=== PATIENT | female | born 1960 | race Caucasian/White ===

== ENCOUNTER 2019-02-26 09:01 | Outpatient (CLI) | payer MEDICARE, SELFPAY ==
[2019-02-26 08:02] VITALS: BP 130/68; PULSE 51; RESP 18; TEMP 36.4; O2SAT 99; BMI 36.0
--- NOTE | 2019-02-26 11:03 | ECG_ITS ---
Measurements Intervals [place] Rate: 52 P: 17 [place]: 159 QRS: 41 QRSD: 81 T: 16 QT: 403 QTc: 377 Interpretive Statements SINUS BRADYCARDIA LOW QRS VOLTAGE IN PRECORDIAL LEADS BASELINE ARTIFACT- I, II, III, AVR, AVL, AVF, V6 BORDERLINE ECG Electronically Signed On 02-26-2019 13:00:16 STORE STOCK ASSOCIATE by Daniel Wolf D.O.
[2019-02-26 11:38] LABS: Basophils Percent Auto 0.4 % (0.2-1.2); Eosinophils Absolute Auto 0.2 K/mm3 (0-0.3); Eosinophils Percent Auto 2.1 % (0-4.4); Hematocrit 39.5 % (37.0-47.0); Hemoglobin 13.1 g/dL (12.0-15.0); Immature Granulocyte Absolute 0.02 K/mm3 (0.00-0.031); Immature Granulocyte Percent A 0.2 % (0-0.5); Lymphocytes Absolute Auto 2.42 K/mm3 (0.9-3.2); Lymphocytes Percent Auto 29.9 % (18.3-44.2); Mean Corpuscular HGB Conc 33.2 g/dl (32-36); Mean Corpuscular Volume 99.5 fl (80-100); Mean Platelet Volume 9.3 fl (7.4-10.4); Monocytes Absolute Auto 0.9 K/mm3 (0.1-0.6); Monocytes Percent Auto 10.9 % (2.6-8.5); Neutrophils Absolute Auto 4.6 K/mm3 (1.3-6.7); Neutrophils Percent Auto 56.5 % (45.5-73.1); Platelet Count Result 225 k/mm3 (150-375); Red Blood Count 3.97 M/mm3 (4.2-5.4); Red Cell Distribution Width 12.2 % (11.5-14.5); White Blood Count 8.1 K/mm3 (4.5-10.0)
[2019-02-26 11:47] LABS: Urine Cotinine NEGATIVE
[2019-02-26 11:48] LABS: Blood Urea Nitrogen 17 mg/dL (7-17); Calcium 9.8 mg/dL (8.4-10.2); Carbon Dioxide 33 mmol/L (22-30); Chloride 98 mmol/L (98-107); Estimated CRCL calculation 68 ml/min; Estimated Glomerular Filt Rate > 60; Glucose 80 mg/dL (65-105); Potassium 3.6 mmol/L (3.4-5.0); Sodium 139 mmol/L (137-145)
[2019-02-26 12:21] LABS: Hemoglobin A1C 5.4 % (<5.7)
== END 2019-02-26 09:02 | disposition home or self-care (01) ==
LOC: ANHSURGERY 09:13
PROVIDERS: Visit Provider Orthopaedic Surgery
DX: Z01.818 Encounter for other preprocedural examination (principal); I10 Essential (primary) hypertension; M17.12 Unilateral primary osteoarthritis, left knee
CPT/HCPCS: 36415; 80048; 80307; 83036; 85025; 87081; 93005

== ENCOUNTER 2020-07-09 14:29 | Outpatient (CLI) | payer OTHER, MEDICARE, SELFPAY | END 2020-07-09 14:30 | disposition home or self-care (01) | LOC: ANHCOVIDVC 14:29 | PROVIDERS: PCP Orthopaedic Surgery | DX: Z23 Encounter for immunization (principal) | CPT/HCPCS: 0001A; 91300 ==

== ENCOUNTER 2020-07-30 14:27 | Outpatient (CLI) | payer MEDICARE, SELFPAY | END 2020-07-30 14:28 | disposition home or self-care (01) | LOC: ANHCOVIDVC 14:27 | PROVIDERS: PCP Orthopaedic Surgery | DX: Z23 Encounter for immunization (principal) | CPT/HCPCS: 0002A; 91300 ==

== ENCOUNTER 2021-01-14 17:57 | Emergency (ER) | payer MEDICARE, SELFPAY ==
[2021-01-14 18:00] VITALS: BP 184/75; PULSE 80; RESP 18; TEMP 36.3; O2SAT 98
--- NOTE | 2021-01-14 18:04 | ED.SKABFB ---
HPI - Skin/Abscess/Foreign Bdy General Chief complaint: Skin/Abscess/Foreign Body Stated complaint: wound on left leg Time Seen by Provider: 01/14/21 18:04 Source: patient and RN notes reviewed History of Present Illness HPI narrative: Patient is a 60-year-old female who presents the urgent care with complaints of redness around a left leg wound. Patient states she has history of cellulitis to the left lower leg and was concerned about infection. Patient states that it started yesterday. Patient has seen the hotel reservationist back in October and it was noted to be a keratosis to the left lower leg. Patient denies of any recent injury to the area. Denies of any drainage from the area. No other acute complaints. No acute distress noted. Patient aware of plan of care. Some parts of this dictation were generated by voice recognition software and may contain typographical and/or grammatical inaccuracies. Related Data Home Medications Medication Instructions Recorded Confirmed Remicade 100 mg IV [id number] 02/26/19 01/14/21 amlodipine 5 mg PO DAILY 02/26/19 01/14/21 bupropion HCl 300 mg PO QAM 02/26/19 01/14/21 calcitriol 0.25 mcg PO DAILY 02/26/19 01/14/21 cholecalciferol (vitamin D3) 50,000 unit PO WEEKLY 02/26/19 01/14/21 clopidogrel 75 mg PO DAILY 02/26/19 01/14/21 cyclobenzaprine 10 mg PO TID 02/26/19 01/14/21 fentanyl 1 patch TRANSDERMAL Q72H 02/26/19 01/14/21 leflunomide 20 mg PO DAILY 02/26/19 01/14/21 levothyroxine 88 mcg PO DAILY 02/26/19 01/14/21 liothyronine 5 mcg PO DAILY 02/26/19 01/14/21 mecobalamin (vitamin B12) 1,000 mcg SUBLINGUAL DAILY 02/26/19 01/14/21 metoprolol succinate 50 mg PO DAILY 02/26/19 01/14/21 oxycodone-acetaminophen 1 tablet PO Q6H PRN 02/26/19 01/14/21 pantoprazole 40 mg PO BID 02/26/19 01/14/21 spironolactone 25 mg PO DAILY 02/26/19 01/14/21 telmisartan 80 mg PO DAILY 02/26/19 01/14/21 timolol maleate [Timoptic] 1 drp OPHTHALMIC (EYE) Q12H 02/26/19 01/14/21 trazodone 150 mg PO HS 02/26/19 01/14/21 cyclobenzaprine 10 mg tablet 10 mg PO TID 03/24/20 01/14/21 gabapentin 300 mg capsule 300 mg PO DAILY 03/24/20 01/14/21 infliximab 100 mg intravenous See Rx Instructions .ROUTE .COMPLEX 03/24/20 11/20/20 solution leflunomide 20 mg tablet 20 mg PO DAILY 03/24/20 01/14/21 zinc 50 mg tablet 50 mg PO DAILY 03/24/20 01/14/21 prednisone 5 mg tablet 5 mg PO DAILY tablet 11/20/20 01/14/21 Allergies Allergy/AdvReac Type Severity Reaction Status Date / Time adhesive tape Allergy Unknown RASH, Verified 01/14/21 18:16 avoids latex due to this allergy clarithromycin Allergy Unknown Nausea Verified 01/14/21 18:16 codeine Allergy Unknown Rash Verified 01/14/21 18:16 duloxetine [From Cymbalta] Allergy Unknown Rash Verified 01/14/21 18:16 erythromycin base Allergy Unknown Nausea Verified 01/14/21 18:16 pregabalin [From Lyrica] Allergy Unknown Rash Verified 01/14/21 18:16 sumatriptan [From Imitrex] Allergy Unknown Hypertensio Verified 01/14/21 18:16 n pineapple Allergy Swelling Verified 01/14/21 18:16 Review of Systems Review of Systems: CONSTITUTIONAL: Denies fever, chills, or sweats. EYES: Denies visual changes, redness, or discharge. ENT: Denies rhinorrhea, congestion, sore throat, or otalgia. CARDIOVASCULAR: Denies chest pain, palpitations, or edema. RESPIRATORY: Denies cough or dyspnea. GASTROINTESTINAL: Denies abdominal pain, nausea, vomiting, or diarrhea. GENITOURINARY: Denies dysuria or hematuria. SKIN: Reports of redness and swelling to the left lower leg surrounding a keratosis MUSCULOSKELETAL: Denies back pain, joint pain, or myalgia. NEUROLOGIC: Denies headache, numbness, or weakness. All other systems reviewed are negative, except as documented in HPI. PMFSH Past Medical History Medical History Aftercare following surgery (03/27/19) Anxiety Depression Fibromyalgia GERD (gastroesophageal reflux disease) Glaucoma HTN (hypertens
== END 2021-01-14 18:30 | disposition home or self-care (01) ==
PROVIDERS: Emergency Provider Nurse Practitioner Family
DX: L57.0 Actinic keratosis (principal); M79.7 Fibromyalgia; K21.9 Gastro-esophageal reflux disease without esophagitis; H40.9 Unspecified glaucoma; I10 Essential (primary) hypertension; E03.9 Hypothyroidism, unspecified; M46.96 Unspecified inflammatory spondylopathy, lumbar region; I34.9 Nonrheumatic mitral valve disorder, unspecified; M17.11 Unilateral primary osteoarthritis, right knee; M05.9 Rheumatoid arthritis with rheumatoid factor, unspecified; G47.30 Sleep apnea, unspecified; F32.9 Major depressive disorder, single episode, unspecified
CPT/HCPCS: 99213; G0463

== ENCOUNTER → 2021-03-24 10:01 | Outpatient (CLI) | payer MEDICARE, SELFPAY ==
--- NOTE | ~2021-03-24 | MR_ITS ---
EXAMINATION: MR knee LT wo con DATE: 03/24/2021 10:53 INDICATION: Unilateral primary osteoarthritis of the left knee. TECHNIQUE: Magnetic resonance imaging (MRI) of the left knee was performed without intravenous contra st. Sequences included coronal PD-weighted FSE, coronal PD-weighted FS FSE, sagittal T2-weighted FSE , sagittal PD-weighted FS FSE and axial PD weighted fat saturated FSE. COMPARISON: Left knee radiographs dated 03/09/2021 FINDINGS: Medial compartment: There is medial extrusion of the medial meniscal body. Complex tear at the meniscal body with both a longitudinal component extending to the inferior articular surface and radial component involving the portion meniscus inferolateral to the longitudinal tear plane which is also a partially subluxed int o the gutter along the medial margin of the medial tibial plateau. Extensive partial thickness cartil age loss with mild chondral surface irregularity which appears to involve greater than 50% the cartil age thickness along the anterior to central weightbearing medial femoral condyle and anterior half of the medial tibial plateau. Mild increased subarticular signal along the posterior weightbearing medi al femoral condyle where there is only mild partial-thickness cartilage loss. Moderate size marginal osteophytes are present. Lateral compartment: Lateral meniscus is normal. Mild chondral surface regularity along the posterior medial quadrant of t he lateral tibial plateau. Additional partial thickness cartilage loss with smooth chondral surface a long the lateral margin of the weightbearing lateral femoral condyle. Small marginal osteophytes are present. Patellofemoral compartment: Partial-thickness chondral ulceration with chondral surface regularity which involves greater than 50 % the cartilage thickness along portions of the patellar apical ridge and medial facet and to lesser degree along the medial side of the lateral facet. Similar partial-thickness chondral ulceration with chondral surface regularity signal involving greater than 50% the cartilage thickness along the infe rior half of the trochlea both medially, laterally and at the trochlear groove. Mild cortical irregul arity at the trochlear groove and medial side of the lateral trochlea. Small to moderate size margina l osteophytes are present. Ligaments and tendons: Anterior and posterior cruciate ligaments are normal. The medial collateral ligament and fibular lonnie ateral ligament complex are normal. The extensor mechanism is normal. The visualized medial and later al hamstring tendons as well as the iliotibial band are normal. Fluid: Moderate-sized left knee joint effusion with mild synovitis at the suprapatellar pouch. No loose oste ochondral bodies identified. Osseous/other: Bone alignment is normal. No fracture or pathologic marrow replacing process. IMPRESSION: 1. Complex tear at the body of the medial meniscus. 2. Tricompartmental osteoarthritis, moderate severity in the medial compartment, mild to moderate in the patellofemoral compartment and mild in the lateral compartment. 3. Moderate-sized right knee joint effusion with mild synovitis at the suprapatellar pouch. Reviewed, dictated and finalized at location A. OR SOFTWARE QA ENGINEER IMPRESSION: 1. Complex tear at the body of the medial meniscus. 2. Tricompartmental osteoarthritis, moderate severity in the medial compartment , mild to moderate in the patellofemoral compartment and mild in the lateral co mpartment. 3. Moderate-sized right knee joint effusion with mild synovitis at the suprapat ellar pouch.
== END ==
PROVIDERS: Visit Provider Orthopaedic Surgery
DX: M17.12 Unilateral primary osteoarthritis, left knee (principal); S83.232A Complex tear of medial meniscus, current injury, left knee, initial encounter; X58.XXXA Exposure to other specified factors, initial encounter; M25.462 Effusion, left knee
CPT/HCPCS: 73721

== ENCOUNTER 2021-05-12 00:31 | Day surgery (SDC) | payer MEDICARE, SELFPAY ==
[2021-05-06 17:48] VITALS: BMI 37.3
--- NOTE | 2021-05-06 17:52 | SUR.PREOP ---
Report to the Outpatient Waiting Room, entrance under the green pavilion located off [facility], at time __1100 on date _05/12/21 . OR Time: _1300 - A mask is required within the hospita Preoperative COVID Testing Requirements: No COVID Test needed if: (proof is required; if not received patient will have Rapid Test prior to entry) - Patient has received COVID Vaccine at least 14 days prior to procedure date or - Patient has positive COVID test result within last 90 days of surgery date. COVID Test needed if above criteria is not met If not COVID vaccinated a COVID test must be conducted within 72 hours of surgery and patient is asked to isolate self from time of testing until procedure. You will go to the [facility] for your COVID testing. The [facility] site is located at the corner of [address] [facility]. You will only be called if COVID results are positive and your surgeon may reschedule your elective surgery date. Patients may have clear liquids (water, carbonated beverages, clear teas, apple juice) until 3 hours prior to surgery with a maximum of 20 ounces. - No food from midnight until time of surgery - Infants may have breast milk until 4 hours before surgery, infant formula 6 hours prior to surgery. - Children will be allowed to drink immediately following surgery. If applicable, please bring a bottle or sippy cup to assist with drinking. Juice, water, soda, and popsicles are readily available. For infants on formula, please bring formula the day of surgery. Pacifiers are allowed. Take the following medications with a SIP of water the morning of surgery: _amlodipine,bupropion,levothyroxine,metoprolol Medications to discontinue per physician _vitamin supplements 05/09/21 plavix,leflunomide Date to take last dose___05/05/21 Please no make-up, nail slovenian, hairspray, perfume, deodorant, or body powder the day of surgery. No jewelry (including any body piercings) or valuables the day of surgery, leave them at home. Please take a shower or bath the night before, or the morning of, surgery with an antibacterial soap. Wear comfortable, loose fitting clothing. Children are encouraged to wear pajamas. - Jewelry must be removed prior to entering the operating room. Rings and piercings that are not removed may be cut off. - The hospital will not accept responsibility for valuables. - Please leave all valuables, including medications, at home the day of surgery. If you are going home after surgery, a licensed route delivery service driver must drive you home. - NO public transportation without another adult. - We recommend that an adult stay with you for 24 hours following discharge. - We also recommend that you do not drive, make important decision, drink alcoholic beverages, or take any drugs that were not prescribed by your health care provider for at least 24 hours after your discharge time. For Pediatric surgeries, we recommend two adults accompany the child home (only one inside the building at this time). Follow any additional instructions given to you from your surgeon. Telephone instructions given to _adali savage and asked if any additional questions and then verbalized understanding. Patient advised to call surgeon office or pre surgery nurse liaison [phone] if any additional questions.
--- NOTE | 2021-05-11 15:10 | WPDANESEPPF ---
Anes - Initial Pre Proc Eval Procedure: Operation Date: 05/12/21 13:30 Proposed Procedures p Left Knee Arthroscopy, Partial Medial Meniscectomy - Shawn Landry MD Date/Time: 05/11/21 15:10 Surgeon: Shawn Landry MD Pre Op Diagnosis: Left Medial Meniscus tear Patient Data Age: 61 Gender: F Height: 1.6 m Weight: 95.45 kg Allergies Allergy/AdvReac Type Severity Reaction Status Date / Time pregabalin [From Lyrica] Allergy Severe Swelling Verified 05/06/21 17:16 codeine Allergy Intermediate Rash Verified 05/06/21 17:16 duloxetine [From Cymbalta] Allergy Intermediate Rash Verified 05/06/21 17:16 pineapple Allergy Intermediate Vomiting Verified 05/06/21 17:16 sumatriptan [From Imitrex] Allergy Intermediate Hypertensio Verified 05/06/21 17:16 n adhesive tape Allergy Mild RASH, Verified 05/06/21 17:16 avoids latex due to this allergy clarithromycin Allergy Mild Nausea Verified 05/06/21 17:16 erythromycin base Allergy Mild Nausea Verified 05/06/21 17:16 Home Medications Medication Instructions Recorded Confirmed Type amlodipine 5 mg PO DAILY 02/26/19 05/06/21 History bupropion HCl 300 mg PO QAM 02/26/19 05/06/21 History cholecalciferol (vitamin D3) 50,000 unit PO MONTHLY 02/26/19 05/06/21 History clopidogrel 75 mg PO DAILY 02/26/19 05/06/21 History cyclobenzaprine 10 mg PO TID 02/26/19 05/06/21 History fentanyl 1 patch TRANSDERMAL Q72H 02/26/19 05/06/21 History leflunomide 20 mg PO DAILY 02/26/19 05/06/21 History levothyroxine 88 mcg PO DAILY 02/26/19 05/06/21 History liothyronine 5 mcg PO DAILY 02/26/19 05/06/21 History mecobalamin (vitamin B12) 1,000 mcg SUBLINGUAL DAILY 02/26/19 05/06/21 History metoprolol succinate 50 mg PO DAILY 02/26/19 05/06/21 History oxycodone-acetaminophen 1 tablet PO Q6H PRN 02/26/19 05/06/21 History pantoprazole 40 mg PO BID 02/26/19 05/06/21 History spironolactone 25 mg PO DAILY 02/26/19 05/06/21 History telmisartan 80 mg PO DAILY 02/26/19 05/06/21 History trazodone 150 mg PO HS 02/26/19 05/06/21 History zinc 50 mg tablet 50 mg PO DAILY 03/24/20 05/06/21 History Results Review: All pre-operative results and documents have been reviewed as part of the pre-operative evaluation. [facility] Past Medical History Medical History Aftercare following surgery (03/27/19) Anxiety Depression Fibromyalgia GERD (gastroesophageal reflux disease) Glaucoma HTN (hypertension) Hypothyroid Lumbar spondylitis Lupus Mitral valve prolapse Osteoarthritis Primary osteoarthritis of right knee Protrusion of cervical intervertebral disc Rheumatoid arthritis Seropositive erosive rheumatoid arthritis Sleep apnea Sleep apnea with use of continuous positive airway pressure (CPAP) Stroke It sounds as though the stroke was due to decreased flow in a vertebral artery. Stroke was 04/2010. Vaginal atrophy Vertigo as late effect of stroke Surgical History Surgical History History of appendectomy History of fusion of cervical spine C6-C7. History of hysterectomy History of weight loss surgery Gastric sleeve in February 2018. Presence of right artificial knee joint (03/27/19) Family History Family History Mother Family history of lung cancer Other Diabetes mellitus Family history of arthritis Family history of cardiovascular disease Hypertension Social History Social History Social History: The patient is and lives with her and 2 yorkies in [place], [place]. She is currently on disability, but worked for doctors for many years. She smoked about half pack of cigarettes per day and quit in 2009. No alcohol or drug abuse. She designates her , Kiran, as her surrogate decision maker and she wishes to be a full code. Smoking pa
[2021-05-12] VITALS (9 sets, daily range): BP systolic 124–162; BP diastolic 65–96; PULSE 56–79; RESP 10–16; TEMP 36.2; O2SAT 94–100
--- NOTE | 2021-05-12 07:26 | WPDHPUPDATE1 ---
History and Physical Update Update Date/Time: 05/12/21 07:26 History and Physical has been reviewed, including an updated exam of the patient. There are NO changes in the patient's condition. Risks, benefits, and alternatives have been discussed and questions answered. Patient agrees to proceed with procedure.
--- NOTE | 2021-05-12 11:53 | ECG_ITS ---
Measurements Intervals [place] Rate: 71 P: 59 [place]: 152 QRS: 7 QRSD: 90 T: 54 QT: 390 QTc: 424 Interpretive Statements SINUS RHYTHM LEFT VENTRICULAR HYPERTROPHY BASELINE WANDER- I, AVR, AVL, AVF BORDERLINE ECG Electronically Signed On 05-12-2021 12:49:30 PERSONNEL RECRUITER by Daniel Wolf D.O.
[2021-05-12] MEDS: ACETAMINOPHEN 500 MG TABLET 1000 MG PO (12:26)
[2021-05-12] MEDS: LACTATED RINGERS 1,000 ML 30 ML IV CONT ×2 (12:33→15:08)
--- NOTE | 2021-05-12 13:33 | PM.HPGS ---
History of Present Illness History of Present Illness Consent: Risks, benefits, and alternatives have been discussed and questions answered. Patient agrees to proceed with procedure. Chief complaint: Left Medial Meniscus tear Narrative: Lisset Tyler is a 61 year old female complains of persistent severe left knee pain. Give-way symptoms with several falls. She feels the knee buckle on her and lock. PMH: She has a history of Rheumatoid arthritis and medication induced lupus. She takes chronic pain medications and is on oral steroids. Previous Treatments Medications: Tylenol, Oral Prednisone, Uses a fentanyl patch and Oxycodone. Helps some. Injection given 11/20/20 without good benefit. Physical therapy with Some improvement. Review of Systems Review of Systems: All systems reviewed & are unremarkable except as noted in HPI and below PMFSH Past Medical History Medical History Aftercare following surgery (03/27/19) Anxiety Depression Fibromyalgia GERD (gastroesophageal reflux disease) Glaucoma HTN (hypertension) Hypothyroid Lumbar spondylitis Lupus Mitral valve prolapse Osteoarthritis Primary osteoarthritis of right knee Protrusion of cervical intervertebral disc Rheumatoid arthritis Seropositive erosive rheumatoid arthritis Sleep apnea Sleep apnea with use of continuous positive airway pressure (CPAP) Stroke It sounds as though the stroke was due to decreased flow in a vertebral artery. Stroke was 04/2010. Vaginal atrophy Vertigo as late effect of stroke Surgical History Surgical History History of appendectomy History of fusion of cervical spine C6-C7. History of hysterectomy History of weight loss surgery Gastric sleeve in February 2018. Presence of right artificial knee joint (03/27/19) Family History Family History Mother Family history of lung cancer Other Diabetes mellitus Family history of arthritis Family history of cardiovascular disease Hypertension Social History Social History Social History: The patient is and lives with her and 2 yorkies in [place], [place]. She is currently on disability, but worked for doctors for many years. She smoked about half pack of cigarettes per day and quit in 2009. No alcohol or drug abuse. She designates her , Kiran, as her surrogate decision maker and she wishes to be a full code. Smoking packs per day: 0.5 Smoking cigarettes per day: 10.0 Years smoked: 30 Smoking pack-years: 15.00 Smoking status: Former smoker Tobacco type: cigarettes Smoking end date: 04/25/09 Alcohol intake: never Substance use: never Living arrangements: with family Gender identity (if verbalized by the patient): Female Spiritual care concerns: No Agree to blood products: Yes Meds Home Medications and Allergies Home Medications Medication Instructions Recorded Confirmed Type amlodipine 5 mg PO DAILY 02/26/19 05/06/21 History bupropion HCl 300 mg PO QAM 02/26/19 05/06/21 History cholecalciferol (vitamin D3) 50,000 unit PO MONTHLY 02/26/19 05/06/21 History clopidogrel 75 mg PO DAILY 02/26/19 05/06/21 History cyclobenzaprine 10 mg PO TID 02/26/19 05/06/21 History fentanyl 1 patch TRANSDERMAL Q72H 02/26/19 05/06/21 History leflunomide 20 mg PO DAILY 02/26/19 05/06/21 History levothyroxine 88 mcg PO DAILY 02/26/19 05/06/21 History liothyronine 5 mcg PO DAILY 02/26/19 05/06/21 History mecobalamin (vitamin B12) 1,000 mcg SUBLINGUAL DAILY 02/26/19 05/06/21 History metoprolol succinate 50 mg PO DAILY 02/26/19 05/06/21 History oxycodone-acetaminophen 1 tablet PO Q6H PRN 02/26/19 05/06/21 History pantoprazole 40 mg PO BID 02/26/19 05/06/21 History spironolactone 25 mg PO DAILY 02/26/19 05/06/21 History t
--- NOTE | 2021-05-12 13:47 | WPDANESEPPF ---
Anes - Initial Pre Proc Eval Procedure: Operation Date: 05/12/21 13:30 Proposed Procedures p Left Knee Arthroscopy, Partial Medial Meniscectomy - Shawn Landry MD Date/Time: 05/12/21 13:47 Surgeon: Shawn Landry MD Pre Op Diagnosis: Left Medial Meniscus tear Patient Data Age: 61 Gender: F Height: 1.6 m Weight: 101.5 kg Last Vital Signs Temp 36.2 C L 05/12/21 11:53 Pulse 77 05/12/21 11:53 Resp 16 05/12/21 11:53 BP 152/76 H 05/12/21 11:53 Pulse Ox 100 05/12/21 11:53 Allergies Allergy/AdvReac Type Severity Reaction Status Date / Time pregabalin [From Lyrica] Allergy Severe Swelling Verified 05/06/21 17:16 codeine Allergy Intermediate Rash Verified 05/06/21 17:16 duloxetine [From Cymbalta] Allergy Intermediate Rash Verified 05/06/21 17:16 latex Allergy Intermediate Blister Verified 05/12/21 12:12 pineapple Allergy Intermediate Vomiting Verified 05/06/21 17:16 sumatriptan [From Imitrex] Allergy Intermediate Hypertensio Verified 05/06/21 17:16 n adhesive tape Allergy Mild RASH, Verified 05/06/21 17:16 avoids latex due to this allergy clarithromycin Allergy Mild Nausea Verified 05/06/21 17:16 erythromycin base Allergy Mild Nausea Verified 05/06/21 17:16 Home Medications Medication Instructions Recorded Confirmed Type amlodipine 5 mg PO DAILY 02/26/19 05/06/21 History bupropion HCl 300 mg PO QAM 02/26/19 05/06/21 History cholecalciferol (vitamin D3) 50,000 unit PO MONTHLY 02/26/19 05/06/21 History clopidogrel 75 mg PO DAILY 02/26/19 05/06/21 History cyclobenzaprine 10 mg PO TID 02/26/19 05/06/21 History fentanyl 1 patch TRANSDERMAL Q72H 02/26/19 05/06/21 History leflunomide 20 mg PO DAILY 02/26/19 05/06/21 History levothyroxine 88 mcg PO DAILY 02/26/19 05/06/21 History liothyronine 5 mcg PO DAILY 02/26/19 05/06/21 History mecobalamin (vitamin B12) 1,000 mcg SUBLINGUAL DAILY 02/26/19 05/06/21 History metoprolol succinate 50 mg PO DAILY 02/26/19 05/06/21 History oxycodone-acetaminophen 1 tablet PO Q6H PRN 02/26/19 05/06/21 History pantoprazole 40 mg PO BID 02/26/19 05/06/21 History spironolactone 25 mg PO DAILY 02/26/19 05/06/21 History telmisartan 80 mg PO DAILY 02/26/19 05/06/21 History trazodone 150 mg PO HS 02/26/19 05/06/21 History zinc 50 mg tablet 50 mg PO DAILY 03/24/20 05/06/21 History Patient hx anesthesia problems: none Family hx anesthesia problems: none Results Review: All pre-operative results and documents have been reviewed as part of the pre-operative evaluation. [facility] Past Medical History Medical History Aftercare following surgery (03/27/19) Anxiety Depression Fibromyalgia GERD (gastroesophageal reflux disease) Glaucoma HTN (hypertension) Hypothyroid Lumbar spondylitis Lupus Mitral valve prolapse Osteoarthritis Primary osteoarthritis of right knee Protrusion of cervical intervertebral disc Rheumatoid arthritis Seropositive erosive rheumatoid arthritis Sleep apnea Sleep apnea with use of continuous positive airway pressure (CPAP) Stroke It sounds as though the stroke was due to decreased flow in a vertebral artery. Stroke was 04/2010. Vaginal atrophy Vertigo as late effect of stroke Surgical History Surgical History History of appendectomy History of fusion of cervical spine C6-C7. History of hysterectomy History of weight loss surgery Gastric sleeve in February 2018. Presence of right artificial knee joint (03/27/19) Family History Family History Mother Family history of lung cancer Other Diabetes mellitus Family history of arthritis Family history of cardiovascular disease Hypertension Social History Social History Social History: The patient is and lives with her and 2 y
[2021-05-12] MEDS: ceFAZolin 2 GM/D5W 50 ML 2 GM/50 ML BAG IVPB (13:56)
[2021-05-12] MEDS: BUPIVACAINE HCL 0.5% PF 30 ML VIAL INFILTRATE (14:24)
[2021-05-12] MEDS: fentaNYL CITRATE INJ (*CRX) 100 MCG/2 ML VIAL 25 MCG IV PUSH ×2 (15:20→15:38)
--- NOTE | 2021-05-12 16:00 | P.OP_ITS ---
Procedure Note - Detailed Date of Procedure 05/12/21 Pre-op Diagnosis Left Medial Meniscus tear Post-op Diagnosis same Procedure Performed Arthroscopic left knee partial medial meniscectomy Surgeon Shawn Landry MD Branch Service Leader Cathleen Garza PA-C Anesthesia general Findings Extensive complex medial tear. Subtotal meniscectomy performed. Medial femur chondromalacia grade 3, medial tibia grade 3. Lateral femur chondromalacia grade 0, lateral tibia grade 0. Description of Procedure The patient was identified and the surgical site confirmed and signed in the preoperative holding area. Antibiotics were started per protocol. She was brought to the operative room and transferred to the OR table. A general anesthetic was administered. Supine position with the operative lower extremity position in the leg frye after placement of a well padded tourniquet. The leg support was lowered and the contralateral limb was supported with a soft bolster. The knee was prepped and draped in the usual sterile fashion. A time- out was performed. The portal sites were marked and infiltrated with 0.5% Marcaine 20 mL. The limb was exsanguinated and the tourniquet inflated to 300 mL Hg. Standard inferolateral and inferomedial portals were established. Inflow was obtained with the saline pump. The camera was introduced. Diagnostic inspection of the joint was accomplished. The meniscus was debrided with the arthroscopic shaver and punches until stable. The arthroscopic instruments were removed. The tourniquet released and wounds closed with subcutaneous 4-0 Monocryl absorbable suture. Steri strips and a sterile dressing were applied. A light elastic wrap was placed. The patient was extubated and brought to the recovery room in stable condition. Estimated Blood Loss -5.0 Drains No Complications No immediate complications Condition stable Disposition PACU
== END 2021-05-12 17:37 | disposition home or self-care (01) ==
PROVIDERS: PCP Internal Medicine; Visit Provider Orthopaedic Surgery
PROC: (CPT 29870; principal; 2021-05-12 13:30)
DX: S83.232A Complex tear of medial meniscus, current injury, left knee, initial encounter (principal); W19.XXXA Unspecified fall, initial encounter; M94.262 Chondromalacia, left knee; I10 Essential (primary) hypertension; E03.9 Hypothyroidism, unspecified; F41.8 Other specified anxiety disorders; M79.7 Fibromyalgia; I34.1 Nonrheumatic mitral (valve) prolapse; K21.9 Gastro-esophageal reflux disease without esophagitis; M32.9 Systemic lupus erythematosus, unspecified; M06.9 Rheumatoid arthritis, unspecified; G47.33 Obstructive sleep apnea (adult) (pediatric); Z79.02 Long term (current) use of antithrombotics/antiplatelets; Z86.73 Personal history of transient ischemic attack (TIA), and cerebral infarction without residual deficits; Z98.1 Arthrodesis status; Z98.84 Bariatric surgery status; Z87.891 Personal history of nicotine dependence; E66.9 Obesity, unspecified; Z68.39 Body mass index [BMI] 39.0-39.9, adult
CPT/HCPCS: 29881; 93005; A9270; J0690; J1100; J2250; J2405; J2704; J3010; J7120

== ENCOUNTER 2021-11-17 13:17 | Emergency (ER) | payer MEDICARE, SELFPAY ==
--- NOTE | 2021-11-17 13:21 | ED.URI ---
HPI - URI/Sore Throat General Chief Complaint: Upper Respiratory Infection Stated Complaint: Sore Throat Time Seen by Provider: 11/17/21 13:42 Source: patient and RN notes reviewed Mode of arrival: ambulatory Limitations: no limitations History of Present Illness HPI Narrative: 61 year old female with history of rheumatoid arthritis presents with concern for rhinorrhea, scratchy throat, body aches. Reports she took a negative COVID test at home. Reports symptoms started 2 days ago. Reports her primary care doctor would like her to have a PCR COVID test. She denies cough, shortness of breath, fever. MD elicited complaint: cough and rhinorrhea Related Data Home Medications Medication Instructions Recorded Confirmed amlodipine 5 mg tablet 5 mg PO DAILY 02/26/19 08/05/21 bupropion HCl 300 mg 24 hr tablet, 300 mg PO QAM 02/26/19 08/05/21 extended release cholecalciferol (vitamin D3) 1,250 50,000 unit PO MONTHLY 02/26/19 08/05/21 mcg (50,000 unit) capsule clopidogrel 75 mg tablet 75 mg PO DAILY 02/26/19 08/05/21 cyclobenzaprine 10 mg tablet 10 mg PO TID 02/26/19 08/05/21 fentanyl 50 mcg/hr transdermal 1 patch transdermal Q72H 02/26/19 08/05/21 patch leflunomide 20 mg tablet 20 mg PO DAILY RA 02/26/19 08/05/21 levothyroxine 88 mcg tablet 88 mcg PO DAILY 02/26/19 08/05/21 liothyronine 5 mcg tablet 5 mcg PO DAILY 02/26/19 08/05/21 mecobalamin (vitamin B12) 1,000 1,000 mcg sublingual DAILY 02/26/19 08/05/21 mcg disintegrating tablet,sublingual metoprolol succinate 50 mg 50 mg PO DAILY 02/26/19 08/05/21 tablet,extended release 24 hr oxycodone-acetaminophen 10 mg-325 1 tablet PO Q6H PRN Pain 02/26/19 08/05/21 mg tablet pantoprazole 40 mg tablet,delayed 40 mg PO BID 02/26/19 08/05/21 release spironolactone 25 mg tablet 25 mg PO DAILY 02/26/19 08/05/21 telmisartan 80 mg tablet 80 mg PO DAILY 02/26/19 08/05/21 trazodone 150 mg tablet 150 mg PO HS 02/26/19 08/05/21 zinc 50 mg tablet 50 mg PO DAILY 03/24/20 08/05/21 Allergies Allergy/AdvReac Type Severity Reaction Status Date / Time pregabalin [From Lyrica] Allergy Severe Swelling Verified 11/17/21 13:38 codeine Allergy Intermediate Rash Verified 11/17/21 13:38 duloxetine [From Cymbalta] Allergy Intermediate Rash Verified 11/17/21 13:38 latex Allergy Intermediate Blister Verified 11/17/21 13:38 pineapple Allergy Intermediate Vomiting Verified 11/17/21 13:38 sumatriptan [From Imitrex] Allergy Intermediate Hypertensio Verified 11/17/21 13:38 n adhesive tape Allergy Mild RASH, Verified 11/17/21 13:38 avoids latex due to this allergy clarithromycin Allergy Mild Nausea Verified 11/17/21 13:38 erythromycin base Allergy Mild Nausea Verified 11/17/21 13:38 Review of Systems Review of Systems: CONSTITUTIONAL: Denies malaise, chills, sweats, or fever. Reports fatigue EYES: Denies visual changes, redness, or discharge. ENT: Reports rhinorrhea, congestion, sinus pain, otalgia and sore throat. CARDIOVASCULAR: Denies chest pain, palpitations, or edema. RESPIRATORY: Denies cough. Denies dyspnea. GASTROINTESTINAL: Denies abdominal pain, nausea, vomiting, diarrhea SKIN: Denies rash or itching. MUSCULOSKELETAL: Reports myalgia. NEUROLOGIC: Reports headache. All systems reviewed & are unremarkable except as noted in HPI and below PMFSH Past Medical History Medical History (Updated 11/17/21 @ 13:51 by Mira Mcdonough NP) Aftercare following surgery (03/27/19) Anxiety Depression Fibromyalgia GERD (gastroesophageal reflux disease) Glaucoma HTN (hypertension) Hypothyroid Lumbar spondylitis Lupus Mitral valve prolapse Osteoarthritis Primary osteoarthritis of right knee Protrusion of cervical intervertebral disc Rheumatoid arthritis Seropositive erosive rheumatoid arthritis Sleep apnea Sleep apnea with use of continuous positive airway pressure (CPAP) Stroke It sounds as though the stroke was due to decreased flow in a vertebral artery. Stroke was
[2021-11-17 13:25] VITALS: BP 157/70; PULSE 70; RESP 14; TEMP 37; O2SAT 100
[2021-11-17 18:47] LABS: SARS-CoV-2 RNA PCR Negative
== END 2021-11-17 13:53 | disposition home or self-care (01) ==
PROVIDERS: Emergency Provider Nurse Practitioner
DX: J06.9 Acute upper respiratory infection, unspecified (principal); Z20.822 Contact with and (suspected) exposure to COVID-19; Z87.891 Personal history of nicotine dependence; M79.7 Fibromyalgia; K21.9 Gastro-esophageal reflux disease without esophagitis; H40.9 Unspecified glaucoma; I10 Essential (primary) hypertension; E03.9 Hypothyroidism, unspecified; M47.816 Spondylosis without myelopathy or radiculopathy, lumbar region; I34.1 Nonrheumatic mitral (valve) prolapse; M06.9 Rheumatoid arthritis, unspecified; G47.30 Sleep apnea, unspecified; Z86.73 Personal history of transient ischemic attack (TIA), and cerebral infarction without residual deficits; Z96.651 Presence of right artificial knee joint; F32.A Depression, unspecified; F41.9 Anxiety disorder, unspecified; M32.9 Systemic lupus erythematosus, unspecified
CPT/HCPCS: 99213; C9803; G0463; U0003; U0005

== ENCOUNTER 2022-01-03 13:14 | Emergency (ER) | payer MEDICARE, SELFPAY ==
--- NOTE | 2022-01-03 13:19 | ED.URI ---
HPI - URI/Sore Throat General Chief Complaint: Upper Respiratory Infection Stated Complaint: sinus ears and throat Time Seen by Provider: 01/03/22 13:19 Source: patient and RN notes reviewed History of Present Illness HPI Narrative: Patient 61-year-old female who presents the urgent care with complaints of sore throat, ear pain, sinus congestion and body aches. Patient denies any fever, nausea or vomiting. States that she believes it is most related to allergies. Patient has been doing sinus rinses, Coricidin and cough drops. Patient has not taken them at home COVID test. Denies of any ill exposures. Denies any shortness of breath. No other acute complaints. No acute distress noted. Patient aware of the plan of care. Some parts of this dictation were generated by voice recognition software and may contain typographical and/or grammatical inaccuracies. Related Data Home Medications Medication Instructions Recorded Confirmed amlodipine 5 mg tablet 5 mg PO DAILY 02/26/19 01/03/22 bupropion HCl 300 mg 24 hr tablet, 300 mg PO QAM 02/26/19 01/03/22 extended release cholecalciferol (vitamin D3) 1,250 50,000 unit PO MONTHLY 02/26/19 01/03/22 mcg (50,000 unit) capsule clopidogrel 75 mg tablet 75 mg PO DAILY 02/26/19 01/03/22 cyclobenzaprine 10 mg tablet 10 mg PO TID 02/26/19 01/03/22 fentanyl 50 mcg/hr transdermal 1 patch transdermal Q72H 02/26/19 01/03/22 patch leflunomide 20 mg tablet 20 mg PO DAILY RA 02/26/19 01/03/22 levothyroxine 88 mcg tablet 88 mcg PO DAILY 02/26/19 01/03/22 liothyronine 5 mcg tablet 5 mcg PO DAILY 02/26/19 01/03/22 mecobalamin (vitamin B12) 1,000 1,000 mcg sublingual DAILY 02/26/19 01/03/22 mcg disintegrating tablet,sublingual metoprolol succinate 50 mg 50 mg PO DAILY 02/26/19 01/03/22 tablet,extended release 24 hr oxycodone-acetaminophen 10 mg-325 1 tablet PO Q6H PRN Pain 02/26/19 01/03/22 mg tablet pantoprazole 40 mg tablet,delayed 40 mg PO BID 02/26/19 01/03/22 release spironolactone 25 mg tablet 25 mg PO DAILY 02/26/19 01/03/22 telmisartan 80 mg tablet 80 mg PO DAILY 02/26/19 01/03/22 trazodone 150 mg tablet 150 mg PO HS 02/26/19 01/03/22 zinc 50 mg tablet 50 mg PO DAILY 03/24/20 01/03/22 Allergies Allergy/AdvReac Type Severity Reaction Status Date / Time pregabalin [From Lyrica] Allergy Severe Swelling Verified 11/17/21 13:38 codeine Allergy Intermediate Rash Verified 11/17/21 13:38 duloxetine [From Cymbalta] Allergy Intermediate Rash Verified 11/17/21 13:38 latex Allergy Intermediate Blister Verified 11/17/21 13:38 pineapple Allergy Intermediate Vomiting Verified 11/17/21 13:38 sumatriptan [From Imitrex] Allergy Intermediate Hypertensio Verified 11/17/21 13:38 n adhesive tape Allergy Mild RASH, Verified 11/17/21 13:38 avoids latex due to this allergy clarithromycin Allergy Mild Nausea Verified 11/17/21 13:38 erythromycin base Allergy Mild Nausea Verified 11/17/21 13:38 Review of Systems Review of Systems: CONSTITUTIONAL: Denies fever, chills, or sweats. EYES: Denies visual changes, redness, or discharge. ENT: Reports bilateral otalgia, rhinorrhea, nasal congestion, sinus pressure and sore throat CARDIOVASCULAR: Denies chest pain, palpitations, or edema. RESPIRATORY: Denies cough or dyspnea. GASTROINTESTINAL: Denies abdominal pain, nausea, vomiting, or diarrhea. GENITOURINARY: Denies dysuria or hematuria. SKIN: Denies rash or itching. MUSCULOSKELETAL: Denies back pain, joint pain. Reports of body aches NEUROLOGIC: Denies headache, numbness, or weakness. All other systems reviewed are negative, except as documented in HPI. [facility] Past Medical History Medical History (Updated 01/03/22 @ 13:41 by STEVE Webber) Aftercare following surgery (03/27/19) Anxiety Depression Fibromyalgia GERD (gastroesophageal reflux disease) Glaucoma HTN (hypertension) Hypothyroid Lumbar spondylitis Lupus Mitral valve prolapse Osteoarthritis Primary
[2022-01-03 13:20] VITALS: BP 156/76; PULSE 71; RESP 20; TEMP 36.4; O2SAT 100
[2022-01-03 13:26] VITALS: BP 156/76; PULSE 71; RESP 20; TEMP 36.4; O2SAT 100
[2022-01-03 17:52] LABS: SARS-CoV-2 RNA PCR Positive
== END 2022-01-03 13:50 | disposition home or self-care (01) ==
PROVIDERS: Emergency Provider Nurse Practitioner Family
DX: U07.1 COVID-19 (principal); H66.92 Otitis media, unspecified, left ear; Z87.891 Personal history of nicotine dependence; M79.7 Fibromyalgia; K21.9 Gastro-esophageal reflux disease without esophagitis; H40.9 Unspecified glaucoma; I10 Essential (primary) hypertension; E03.9 Hypothyroidism, unspecified; M47.816 Spondylosis without myelopathy or radiculopathy, lumbar region; I34.1 Nonrheumatic mitral (valve) prolapse; M19.90 Unspecified osteoarthritis, unspecified site; M17.11 Unilateral primary osteoarthritis, right knee; M06.9 Rheumatoid arthritis, unspecified; G47.30 Sleep apnea, unspecified; Z86.73 Personal history of transient ischemic attack (TIA), and cerebral infarction without residual deficits; Z98.84 Bariatric surgery status; M32.9 Systemic lupus erythematosus, unspecified
CPT/HCPCS: 99213; C9803; G0463; U0003; U0005

== ENCOUNTER 2022-01-17 15:12 | Emergency (ER) | payer MEDICARE, SELFPAY ==
--- NOTE | ~2022-01-17 | XR_ITS ---
XR hand LT min 3V DATE: 01/17/2022 15:41 INDICATION: Fell on hand. Generalized hand pain TECHNIQUE: 3 views COMPARISON: None FINDINGS: There is polyarticular osteoarthritis involving primarily the interphalangeal joints, with mild involvement of the first carpometacarpal and third metacarpophalangeal joints. No fracture or dislocation, periosteal reaction or bone destruction, erosive change or chondrocalcino sis is noted. IMPRESSION: Polyarticular osteoarthritis No fracture or dislocation is evident Reviewed, dictated and finalized at location A.
[2022-01-17 15:24] VITALS: BP 178/69; PULSE 88; RESP 16; TEMP 36.3; O2SAT 99
[2022-01-17 15:36] VITALS: BP 178/69; PULSE 88; RESP 16; TEMP 36.3; O2SAT 99
--- NOTE | 2022-01-17 16:17 | ED.GENADULT ---
HPI - General Adult General Chief complaint: Extremity Injury, Upper Stated complaint: Fall Injury/Left Hand Source: patient Mode of arrival: ambulatory Limitations: no limitations History of Present Illness HPI narrative: Patient presents for evaluation after experiencing a fall last night. She indicates she was diagnosed with COVID approximately 2 weeks ago. Since that time she has felt foggy . She has also been having headaches. She was given Paxlovid and completed therapy. Last night she was outside walking to her deck when she fell onto the ground. She hit her head but did not have loss of consciousness. She is not on blood thinners. No vomiting since episode. She began yelling and family members were very close by at that time. She states she has had swelling, pain, bruising to the left hand since that time. She also notes bruising to the left upper eyelid. She has been applying ice. She is currently on fentanyl patches and Percocet for chronic pain per pain management. She is scheduled to see her primary care provider 2 days from now. She came in today to get an x-ray of her left hand to make sure that she did not have a fracture. She is right-hand dominant. She denies paresthesias. No loss of range of motion but states the pain is worse with movement. No additional complaints or concerns. Related Data Home Medications Medication Instructions Recorded Confirmed amlodipine 5 mg tablet 5 mg PO DAILY 02/26/19 01/17/22 bupropion HCl 300 mg 24 hr tablet, 300 mg PO QAM 02/26/19 01/17/22 extended release cholecalciferol (vitamin D3) 1,250 50,000 unit PO MONTHLY 02/26/19 01/17/22 mcg (50,000 unit) capsule clopidogrel 75 mg tablet 75 mg PO DAILY 02/26/19 01/17/22 cyclobenzaprine 10 mg tablet 10 mg PO TID 02/26/19 01/17/22 fentanyl 50 mcg/hr transdermal 1 patch transdermal Q72H 02/26/19 01/17/22 patch leflunomide 20 mg tablet 20 mg PO DAILY RA 02/26/19 01/17/22 levothyroxine 88 mcg tablet 88 mcg PO DAILY 02/26/19 01/17/22 liothyronine 5 mcg tablet 5 mcg PO DAILY 02/26/19 01/17/22 mecobalamin (vitamin B12) 1,000 1,000 mcg sublingual DAILY 02/26/19 01/17/22 mcg disintegrating tablet,sublingual metoprolol succinate 50 mg 50 mg PO DAILY 02/26/19 01/17/22 tablet,extended release 24 hr oxycodone-acetaminophen 10 mg-325 1 tablet PO Q6H PRN Pain 02/26/19 01/17/22 mg tablet pantoprazole 40 mg tablet,delayed 40 mg PO BID 02/26/19 01/17/22 release spironolactone 25 mg tablet 25 mg PO DAILY 02/26/19 01/17/22 telmisartan 80 mg tablet 80 mg PO DAILY 02/26/19 01/17/22 trazodone 150 mg tablet 150 mg PO HS 02/26/19 01/17/22 zinc 50 mg tablet 50 mg PO DAILY 03/24/20 01/17/22 Allergies Allergy/AdvReac Type Severity Reaction Status Date / Time pregabalin [From Lyrica] Allergy Severe Swelling Verified 01/17/22 15:34 codeine Allergy Intermediate Rash Verified 01/17/22 15:34 duloxetine [From Cymbalta] Allergy Intermediate Rash Verified 01/17/22 15:34 latex Allergy Intermediate Blister Verified 01/17/22 15:34 pineapple Allergy Intermediate Vomiting Verified 01/17/22 15:34 sumatriptan [From Imitrex] Allergy Intermediate Hypertensio Verified 01/17/22 15:34 n adhesive tape Allergy Mild RASH, Verified 01/17/22 15:34 avoids latex due to this allergy clarithromycin Allergy Mild Nausea Verified 01/17/22 15:34 erythromycin base Allergy Mild Nausea Verified 01/17/22 15:34 Review of Systems Review of Systems: CONSTITUTIONAL: Denies fever, chills, or sweats. EYES: Denies visual changes, redness, or discharge. ENT: Denies rhinorrhea, congestion, sore throat, or otalgia. CARDIOVASCULAR: Denies chest pain, palpitations, or edema. RESPIRATORY: Denies cough or dyspnea. GASTROINTESTINAL: Denies abdominal pain, nausea, vomiting, or diarrhea. GENITOURINARY: Denies dysuria or hematuria. SKIN: Reports bruising to the face and the left hand. MUSCULOSKELETAL: Reports acute left hand pain. Reports chronic back and nec
== END 2022-01-17 16:18 | disposition home or self-care (01) ==
PROVIDERS: Emergency Provider Nurse Practitioner
DX: S00.12XA Contusion of left eyelid and periocular area, initial encounter (principal); S60.222A Contusion of left hand, initial encounter; W19.XXXA Unspecified fall, initial encounter; F41.9 Anxiety disorder, unspecified; F32.A Depression, unspecified; M79.7 Fibromyalgia; K21.9 Gastro-esophageal reflux disease without esophagitis; H40.9 Unspecified glaucoma; I10 Essential (primary) hypertension; E03.9 Hypothyroidism, unspecified; I34.1 Nonrheumatic mitral (valve) prolapse; M46.96 Unspecified inflammatory spondylopathy, lumbar region; M17.12 Unilateral primary osteoarthritis, left knee; M05.9 Rheumatoid arthritis with rheumatoid factor, unspecified; G47.30 Sleep apnea, unspecified; I69.398 Other sequelae of cerebral infarction; Z87.891 Personal history of nicotine dependence; Z96.651 Presence of right artificial knee joint; Z98.84 Bariatric surgery status
CPT/HCPCS: 73130; 99213; G0463

== ENCOUNTER 2023-03-29 13:33 | Emergency (ER) | payer MEDICARE, SELFPAY ==
--- NOTE | 2023-03-29 13:47 | ED.URI ---
HPI - URI/Sore Throat General Chief Complaint: Upper Respiratory Infection Stated Complaint: Sore Throat/Ear Pain Source: patient, RN notes reviewed and old records reviewed Mode of arrival: ambulatory Limitations: no limitations History of Present Illness HPI Narrative: 62-year-old female presents to [facility] with complaints myalgia, sore throat, dry cough, right earache, and fatigue that started today. Patient has not taken anything for symptoms. Patient denies chest pain, shortness of breath, dizziness, weakness, vomiting MD elicited complaint: sore throat and nasal congestion Related Data Home Medications Medication Instructions Recorded Confirmed amlodipine 5 mg tablet 5 mg PO DAILY 02/26/19 01/17/22 bupropion HCl 300 mg 24 hr tablet, 300 mg PO QAM 02/26/19 01/17/22 extended release cholecalciferol (vitamin D3) 1,250 50,000 unit PO MONTHLY 02/26/19 01/17/22 mcg (50,000 unit) capsule clopidogrel 75 mg tablet 75 mg PO DAILY 02/26/19 01/17/22 cyclobenzaprine 10 mg tablet 10 mg PO TID 02/26/19 01/17/22 fentanyl 50 mcg/hr transdermal 1 patch transdermal Q72H 02/26/19 01/17/22 patch leflunomide 20 mg tablet 20 mg PO DAILY RA 02/26/19 01/17/22 levothyroxine 88 mcg tablet 88 mcg PO DAILY 02/26/19 01/17/22 liothyronine 5 mcg tablet 5 mcg PO DAILY 02/26/19 01/17/22 mecobalamin (vitamin B12) 1,000 1,000 mcg sublingual DAILY 02/26/19 01/17/22 mcg disintegrating tablet,sublingual metoprolol succinate 50 mg 50 mg PO DAILY 02/26/19 01/17/22 tablet,extended release 24 hr oxycodone-acetaminophen 10 mg-325 1 tablet PO Q6H PRN Pain 02/26/19 01/17/22 mg tablet pantoprazole 40 mg tablet,delayed 40 mg PO BID 02/26/19 01/17/22 release spironolactone 25 mg tablet 25 mg PO DAILY 02/26/19 01/17/22 telmisartan 80 mg tablet 80 mg PO DAILY 02/26/19 01/17/22 trazodone 150 mg tablet 150 mg PO HS 02/26/19 01/17/22 zinc 50 mg tablet 50 mg PO DAILY 03/24/20 01/17/22 Allergies Allergy/AdvReac Type Severity Reaction Status Date / Time pregabalin [From Lyrica] Allergy Severe Swelling Verified 01/17/22 15:34 codeine Allergy Intermediate Rash Verified 01/17/22 15:34 duloxetine [From Cymbalta] Allergy Intermediate Rash Verified 01/17/22 15:34 latex Allergy Intermediate Blister Verified 01/17/22 15:34 pineapple Allergy Intermediate Vomiting Verified 01/17/22 15:34 sumatriptan [From Imitrex] Allergy Intermediate Hypertensio Verified 01/17/22 15:34 n adhesive tape Allergy Mild RASH, Verified 01/17/22 15:34 avoids latex due to this allergy clarithromycin Allergy Mild Nausea Verified 01/17/22 15:34 erythromycin base Allergy Mild Nausea Verified 01/17/22 15:34 Review of Systems Constitutional: Constitutional: Reports as per HPI, Reports body ache(s) and Reports fatigue Eyes: Eyes: Reports no additional eye complaints ENT: Reports as per HPI, Reports otalgia, Reports nasal congestion and Reports sore throat Cardiovascular: Cardiovascular: Reports no additional cardiovascular complaints Respiratory: Respiratory: Reports as per HPI, Reports chest congestion and Reports cough Neurologic: Reports system reviewed and no additional complaints, except as documented PMFSH Past Medical History Medical History Aftercare following surgery (03/27/19) Anxiety Depression Fibromyalgia GERD (gastroesophageal reflux disease) Glaucoma HTN (hypertension) Hypothyroid Lumbar spondylitis Lupus Mitral valve prolapse Osteoarthritis Primary osteoarthritis of right knee Protrusion of cervical intervertebral disc Rheumatoid arthritis Seropositive erosive rheumatoid arthritis Sleep apnea Sleep apnea with use of continuous positive airway pressure (CPAP) Stroke It sounds as though the stroke was due to decreased flow in a vertebral artery. Stroke was 04/2010. Vaginal atrophy Vertigo as late effect of stroke Surgical History Surgical History (Reviewed 03/29/23
[2023-03-29 13:52] VITALS: PULSE 88; RESP 20; TEMP 36.3; O2SAT 97
== END 2023-03-29 14:22 | disposition home or self-care (01) ==
PROVIDERS: Emergency Provider Registered Nurse
DX: U07.1 COVID-19 (principal); H66.91 Otitis media, unspecified, right ear; Z87.891 Personal history of nicotine dependence; M79.7 Fibromyalgia; K21.9 Gastro-esophageal reflux disease without esophagitis; H40.9 Unspecified glaucoma; I10 Essential (primary) hypertension; E03.9 Hypothyroidism, unspecified; I34.1 Nonrheumatic mitral (valve) prolapse; M05.9 Rheumatoid arthritis with rheumatoid factor, unspecified; G47.30 Sleep apnea, unspecified; Z86.73 Personal history of transient ischemic attack (TIA), and cerebral infarction without residual deficits; M17.11 Unilateral primary osteoarthritis, right knee; Z98.84 Bariatric surgery status; F41.9 Anxiety disorder, unspecified; F32.A Depression, unspecified
CPT/HCPCS: 87081; 87426; 87880; 99213; C9803; G0463

== ENCOUNTER 2023-09-22 16:12 | Outpatient (CLI) | payer MEDICARE, SELFPAY ==
--- NOTE | ~2023-09-22 | XR_ITS ---
EXAM: XR hip LT 2V w AP pelvis DATE: 09/22/2023 16:26 HISTORY: HERNIATED LUMBAR DISK, HIP PAIN . COMPARISON: None available. FINDINGS: Normal mineralization. No fracture or dislocation. No lytic or blastic lesion. Lumbar dege nerative disc disease. Mild degenerative change in the bilateral SI joints and hips. Scattered pelvic enthesopathy. Pelvic phleboliths. IMPRESSION: No acute osseous finding in the pelvis or left hip. Reviewed, dictated and finalized at location K.
== END 2023-09-22 16:13 | disposition home or self-care (01) ==
LOC: ANHIMG 16:13
PROVIDERS: Visit Provider Orthopaedic Surgery
DX: M25.552 Pain in left hip (principal)
CPT/HCPCS: 73502

== ENCOUNTER 2023-12-14 12:29 | Outpatient (CLI) | payer MEDICARE, SELFPAY ==
--- NOTE | ~2023-12-14 | XR_ITS ---
[id number] 12/14/2023 13:19 Indication: Left foot pain Procedure: 4 views left foot Comparison: No prior studies for comparison. Findings: There is mild polyarticular osteoarthritis. Lisfranc joint intact. Prominent degenerative calcaneal e nthesophytes. No acute fracture, subluxation or dislocation. No focal soft tissue abnormality. No for eign bodies. Impression: 1: Mild-moderate polyarticular osteoarthritis of the left foot. Reviewed, dictated and finalized at location B. Impression: 1: Mild-moderate polyarticular osteoarthritis of the left foot.
== END 2023-12-14 12:30 | disposition home or self-care (01) ==
PROVIDERS: Visit Provider Orthopaedic Surgery
DX: M19.072 Primary osteoarthritis, left ankle and foot (principal)
CPT/HCPCS: 73630

== ENCOUNTER 2024-01-23 16:24 | Outpatient (CLI) | payer MEDICARE, SELFPAY ==
--- NOTE | ~2024-01-23 | XR_ITS ---
Lumbosacral Spine: AP, oblique, and lateral views Clinical History: Pain Findings: The normal lordotic curve is maintained. And no fracture. There is minimal grade 1 anteroli sthesis of L4 over L5. There are minimal degenerative disc changes. There is moderate to advanced fac et arthropathy, especially at L4-L5 and L5-S1. The sacroiliac joints are normally outlined. Impression: Mild degenerative spondylosis overall, as detailed above. Reviewed, dictated and finalized at location M. Impression: Mild degenerative spondylosis overall, as detailed above.
--- NOTE | ~2024-01-23 | XR_ITS ---
Left Knee Technique: AP, lateral, and sunrise views were obtained. Clinical History: Meniscus tear Findings: No fracture or dislocation is seen. There is medial compartment narrowing with moderate tri compartmental osteophyte formation.. Small joint effusion is seen. Impression: Moderate to advanced tricompartmental degenerative change, as detailed above. Small joint effusion. Reviewed, dictated and finalized at location . Impression: Moderate to advanced tricompartmental degenerative change, as detailed above. Small joint effusion.
--- NOTE | ~2024-01-23 | XR_ITS ---
EXAMINATION: XR hip LT 2V w AP pelvis DATE: 01/23/2024 16:58 INDICATION: Left hip sprain TECHNIQUE: Anteroposterior view of the pelvis and anteroposterior and frog-leg lateral views of the l eft hip were obtained. COMPARISON: None. FINDINGS: Alignment is normal. No fracture or suspected osteonecrosis. The uterus polyarticular osteoarthritis, mild to moderate severity at the left sacroiliac joint and severe at the lower lumbar facet joints. Bilateral hip and right sacroiliac joint spaces are relatively preserved. Scattered enthesophytes oralia ng the bilateral anterior iliac spines and at the left greater trochanter. IMPRESSION: 1. Severe lower lumbar and mild to moderate left sacroiliac osteoarthritis. Reviewed, dictated and finalized at location A.
== END 2024-01-23 16:25 | disposition home or self-care (01) ==
PROVIDERS: Visit Provider Orthopaedic Surgery
DX: M16.12 Unilateral primary osteoarthritis, left hip (principal); M25.462 Effusion, left knee; M43.06 Spondylolysis, lumbar region; M43.07 Spondylolysis, lumbosacral region; M46.1 Sacroiliitis, not elsewhere classified
CPT/HCPCS: 72110; 73502; 73564